=== PATIENT | female | born 1955 | race Caucasian/White ===

== ENCOUNTER → 2020-08-29 13:12 | Outpatient (CLI) | payer MEDICARE, SELFPAY ==
--- NOTE | ~2020-08-29 | MM_ITS ---
EXAMINATION: MM screening [facility] BI [facility] HISTORY: Screening TECHNIQUE: Craniocaudal and mediolateral oblique 3-D tomosynthesis images were obtained and synthetic 2-D images were generated. CAD analysis was submitted and interpreted. COMPARISON: Comparison to multiple prior studies sequentially, with oldest reviewed study dated 01/29. BREAST PARENCHYMAL COMPOSITION: There are scattered areas of fibroglandular density. FINDINGS: There is no evidence of suspicious mass, calcification, or architectural distortion to sugg est malignancy in either breast. There has been no suspicious interval change. IMPRESSION: 1. No mammographic evidence of malignancy. 2. Recommend routine screening mammography in one year. BI-RADS Category 1: Negative Reviewed, dictated and finalized at location A.
--- NOTE | ~2020-08-29 | DEXA_ITS ---
Bone Density Report Name: Alondra Robert Age: 64 Sex: Female Ethnicity: White Date of : 1955 Indication: postmenopausal; screening for osteoporosis; height loss; Referring Provider: Marley Mcneil Study: Bone densitometry was performed. Exam Date: August 29, 2020 Accession number: [id number] Bone Density: Region BMD T-score Z-score Classification AP Spine (L1, L4) 1.029 -0.1 1.7 Normal Femoral Neck (Left) 0.694 -1.4 0.2 Osteopenia Total Hip (Left) 0.831 -0.9 0.4 Normal Femoral Neck (Right) 0.718 -1.2 0.4 Osteopenia Total Hip (Right) 0.899 -0.3 0.9 Normal Total Hip Mean 0.865 -0.6 0.7 Normal World Health Organization criteria for BMD impression classify patients as: Normal (T-score at or above -1.0), Osteopenia (T-score between -1.0 and -2.5), or Osteoporosis (T-score at or below -2.5). 10-year Fracture Risk(1): Major Osteoporotic Fracture 8.8% Hip Fracture 0.9% Reported Risk Factors: [place] (), Neck BMD=0.694, BMI=26.9 (1) FRAX(R) Version 3.08. Fracture probability calculated for an untreated patient. Fracture probability may be lower if the patient has received treatment. Previous Exams: Region Exam Age BMD T-score BMD Change BMD Change Date g/cm2 vs Baseline vs Previous AP Spine(L1, L4) 08/29/2020 64 1.029 -0.1 0.037* 0.051* 08/21/2018 62 0.978 -0.5 -0.014 0.005 02/24/2017 61 0.973 -0.6 -0.019 0.016 02/08/2014 58 0.958 -0.7 -0.034* -0.048* 01/08/2012 56 1.006 -0.3 0.014 0.007 09/15/2009 53 0.999 -0.3 0.007 0.007 09/02/2007 51 0.992 -0.4 Total Hip(Left) 08/29/2020 64 0.831 -0.9 -0.046* -0.009 08/21/2018 62 0.840 -0.8 -0.037* -0.009 02/24/2017 61 0.849 -0.8 -0.028* -0.036* 02/08/2014 58 0.886 -0.5 0.008 -0.007 01/08/2012 56 0.893 -0.4 0.015 0.027 09/15/2009 53 0.866 -0.6 -0.012 -0.012 09/02/2007 51 0.878 -0.5 Total Hip(Right) 08/29/2020 64 0.899 -0.3 -0.041* 0.003 08/21/2018 62 0.897 -0.4 -0.044* -0.027 02/24/2017 61 0.923 -0.2 -0.017 -0.001 02/08/2014 58 0.925 -0.1 -0.016 -0.020 01/08/2012 56 0.945 0.0 0.004 0.008 09/15/2009 53 0.937 0.0 -0.004 -0.004 09/02/2007 51 0.940 0.0 *Denotes significance at 95% c
== END ==
PROVIDERS: PCP Family Medicine; Visit Provider Obstetrics & Gynecology
DX: Z12.31 Encounter for screening mammogram for malignant neoplasm of breast (principal); Z78.0 Asymptomatic menopausal state; M85.852 Other specified disorders of bone density and structure, left thigh; M85.851 Other specified disorders of bone density and structure, right thigh
CPT/HCPCS: 77063; 77067; 77080

== ENCOUNTER → 2021-09-17 07:59 | Outpatient (CLI) | payer MEDICARE, SELFPAY ==
--- NOTE | ~2021-09-17 | XR_ITS ---
EXAMINATION: XR knee LT 3V DATE: 09/17/2021 08:17 INDICATION: Left knee pain TECHNIQUE: Three views of the left knee were obtained. COMPARISON: 05/08/2007 FINDINGS: Alignment is normal. No fracture or osteochondral lesion. There is severe narrowing of the medial compartment, moderate narrowing of the patellofemoral compartment, and mild narrowing of the l ateral compartment. No joint effusion/synovitis. Soft tissues are unremarkable. IMPRESSION: 1. Tricompartmental osteoarthritis, severe in the medial compartment. Reviewed, dictated and finalized at location A.
== END ==
PROVIDERS: PCP Family Medicine; Visit Provider Family Medicine
DX: M17.12 Unilateral primary osteoarthritis, left knee (principal)
CPT/HCPCS: 73562

== ENCOUNTER → 2021-10-29 10:36 | Outpatient (CLI) | payer MEDICARE, SELFPAY ==
--- NOTE | ~2021-10-29 | MM_ITS ---
EXAMINATION: MM screening [facility] BI w [facility] HISTORY: Screening TECHNIQUE: Craniocaudal and mediolateral oblique 3-D tomosynthesis images were obtained and synthetic 2-D images were generated. CAD analysis was submitted and interpreted. COMPARISON: Comparison to multiple prior studies sequentially, with oldest reviewed study dated 01/29. BREAST PARENCHYMAL COMPOSITION: There are scattered areas of fibroglandular density. FINDINGS: There is no evidence of suspicious mass, calcification, or architectural distortion to sugg est malignancy in either breast. There has been no suspicious interval change. IMPRESSION: 1. No mammographic evidence of malignancy. 2. Recommend routine screening mammography in one year. BI-RADS Category 1: Negative Reviewed, dictated and finalized at location A.
== END ==
PROVIDERS: PCP Family Medicine; Visit Provider Obstetrics & Gynecology
DX: Z12.31 Encounter for screening mammogram for malignant neoplasm of breast (principal)
CPT/HCPCS: 77063; 77067

== ENCOUNTER 2022-03-20 06:59 | Outpatient (CLI) | payer MEDICARE, SELFPAY ==
[2022-03-20 07:33] LABS: Basophils Percent Auto 0.6 % (0.2-1.2); Eosinophils Absolute Auto 0.3 K/mm3 (0-0.3); Hematocrit 39.5 % (37.0-47.0); Immature Granulocyte Absolute 0.03 K/mm3 (0.00-0.031); Immature Granulocyte Percent A 0.5 % (0-0.5); Lymphocytes Absolute Auto 1.62 K/mm3 (0.9-3.2); Mean Corpuscular HGB Conc 32.9 g/dl (32-36); Mean Corpuscular Hemoglobin 30.1 pg (26-34); Mean Corpuscular Volume 91.4 fl (80-100); Monocytes Absolute Auto 0.6 K/mm3 (0.1-0.6); Monocytes Percent Auto 9.5 % (2.6-8.5); Neutrophils Absolute Auto 3.7 K/mm3 (1.3-6.7); Neutrophils Percent Auto 59.4 % (45.5-73.1); Platelet Count Result 308 k/mm3 (150-375); Red Blood Count 4.32 M/mm3 (4.2-5.4); Red Cell Distribution Width 12.9 % (11.5-14.5); White Blood Count 6.2 K/mm3 (4.5-10.0)
[2022-03-20 07:43] LABS: Prothrombin Time 12.7 Seconds (11.1-14.7)
[2022-03-20 07:44] LABS: Alanine Aminotransferase 14 U/L (6-35); Albumin Level 4.4 g/dL (3.5-5.1); Alkaline Phosphatase 97 U/L (38-126); Anion Gap 6 mmol/L (8-16); Aspartate Amino Transferase 30 U/L (14-36); Bilirubin,Total 0.6 mg/dL (0.2-1.3); Blood Urea Nitrogen 27 mg/dL (7-17); Calcium 9.2 mg/dL (8.4-10.2); Carbon Dioxide 28 mmol/L (22-30); Chloride 105 mmol/L (98-107); Estimated Glomerular Filt Rate 50; Glucose 94 mg/dL (65-110); Potassium 4.2 mmol/L (3.4-5.0); Sodium 139 mmol/L (137-145)
[2022-03-20 08:14] LABS: Thyroid Stimulating Hormone 0.324 uIU/mL (0.465-4.680)
[2022-03-20 09:17] LABS: Free T4 Free Thyroxine 2.62 ng/mL (0.78-2.19)
[2022-03-20 10:11] LABS: Add Urine Microscopic? YES; Appearance Urine Clear (Clear); Bilirubin Urine Negative (Negative); Blood Urine Negative (Negative); Color Urine Light Yellow (Yellow); Glucose Urine UA Negative (Negative); Ketones Urine Negative (Negative); Leukocyte Esterase Ur 1+ LEU/UL (Negative); Nitrate Urine Negative (Negative); Protein Urine Trace mg/dL (Negative); Urobilinogen Urine 0.2 mg/dL (<2.0); pH Urine 6.5 (5.0-9.0)
[2022-03-20 10:22] LABS: Bacteria Urine Trace /hpf; Mucus Urine Rare /lpf; RBC Urine 0-2 /hpf (0-2); Squamous Epithelial Cell Urine Moderate /hpf (Few)
== END 2022-03-20 07:00 | disposition home or self-care (01) ==
PROVIDERS: PCP Family Medicine; Visit Provider Physician Assistant
DX: Z01.810 Encounter for preprocedural cardiovascular examination (principal); I10 Essential (primary) hypertension; Z11.2 Encounter for screening for other bacterial diseases; Z13.0 Encounter for screening for diseases of the blood and blood-forming organs and certain disorders involving the immune mechanism; Z13.6 Encounter for screening for cardiovascular disorders
CPT/HCPCS: 36415; 80053; 81001; 84439; 84443; 85025; 85610; 86850; 86900; 86901; 87077; 87086; 87088

== ENCOUNTER → 2022-12-31 10:24 | Outpatient (CLI) | payer MEDICARE, SELFPAY ==
--- NOTE | ~2022-12-31 | MM_ITS ---
EXAMINATION: MM screening [facility] BI [facility] HISTORY: Screening mammogram TECHNIQUE: Craniocaudal and mediolateral oblique 3-D tomosynthesis images were obtained and synthetic 2-D images were generated. CAD analysis was submitted and interpreted. COMPARISON: 10/29/2021, 08/29/2020, 04/16/2019 BREAST PARENCHYMAL COMPOSITION: There are scattered areas of fibroglandular density. FINDINGS: No suspicious mass, calcification, or architectural distortion are identified in either tom ast to suggest malignancy. There has been no suspicious interval change. IMPRESSION: 1. No mammographic evidence of malignancy. 2. Recommend routine screening mammography in one year. BI-RADS Category 1: Negative Reviewed, dictated and finalized at location A.
== END ==
PROVIDERS: PCP Obstetrics & Gynecology; Visit Provider Obstetrics & Gynecology
DX: Z12.31 Encounter for screening mammogram for malignant neoplasm of breast (principal)
CPT/HCPCS: 77063; 77067

== ENCOUNTER 2023-07-02 11:56 | Outpatient (CLI) | payer MEDICARE, SELFPAY ==
--- NOTE | ~2023-07-02 | DEXA_ITS ---
Bone Density Report Name: Alondra Robert Age: 67 Sex: Female Ethnicity: White Date of : 1955 Indication: postmenopausal; screening for osteoporosis; height loss; prior fracture; Referring Provider: Marley Mcneil Study: Bone densitometry was performed. Exam Date: July 02, 2023 Accession number: [id number] Bone Density: Region BMD T-score Z-score Classification AP Spine (L1, L4) 1.042 0.0 2.0 Normal Femoral Neck (Left) 0.725 -1.1 0.6 Osteopenia Total Hip (Left) 0.802 -1.1 0.3 Osteopenia Femoral Neck (Right) 0.729 -1.1 0.6 Osteopenia Total Hip (Right) 0.888 -0.4 1.0 Normal Total Hip Mean 0.845 -0.8 0.7 Normal World Health Organization criteria for BMD impression classify patients as: Normal (T-score at or above -1.0), Osteopenia (T-score between -1.0 and -2.5), or Osteoporosis (T-score at or below -2.5). 10-year Fracture Risk(1): Major Osteoporotic Fracture 14% Hip Fracture 1.4% Reported Risk Factors: [place] (), Neck BMD=0.729, BMI=25.3, previous fracture (1) FRAX(R) Version 3.08. Fracture probability calculated for an untreated patient. Fracture probability may be lower if the patient has received treatment. Previous Exams: Region Exam Age BMD T-score BMD Change BMD Change Date g/cm2 vs Baseline vs Previous AP Spine(L1, L4) 07/02/2023 67 1.042 0.0 0.050* 0.013 08/29/2020 64 1.029 -0.1 0.037* 0.051* 08/21/2018 62 0.978 -0.5 -0.014 0.005 02/24/2017 61 0.973 -0.6 -0.019 0.016 02/08/2014 58 0.958 -0.7 -0.034* -0.048* 01/08/2012 56 1.006 -0.3 0.014 0.007 09/15/2009 53 0.999 -0.3 0.007 0.007 09/02/2007 51 0.992 -0.4 Total Hip(Left) 07/02/2023 67 0.802 -1.1 -0.075* -0.029* 08/29/2020 64 0.831 -0.9 -0.046* -0.009 08/21/2018 62 0.840 -0.8 -0.037* -0.009 02/24/2017 61 0.849 -0.8 -0.028* -0.036* 02/08/2014 58 0.886 -0.5 0.008 -0.007 01/08/2012 56 0.893 -0.4 0.015 0.027 09/15/2009 53 0.866 -0.6 -0.012 -0.012 09/02/2007 51 0.878 -0.5 Total Hip(Right) 07/02/2023 67 0.888 -0.4 -0.053* -0.012 08/29/2020 64 0.899 -0.3 -0.041* 0.003 08/21/2018 62 0.897 -0.4 -0.044* -0.027 02/24/2017 61 0.923 -0.2 -0.017 -0.001 02/08/2014 58 0.925 -0.1 -0.016 -0.020 01/08/2012 56 0.945 0.0 0.004 0.008
== END 2023-07-02 11:57 ==
LOC: MICIMG 11:58
PROVIDERS: PCP Obstetrics & Gynecology; Visit Provider Family Medicine
DX: M85.80 Other specified disorders of bone density and structure, unspecified site (principal); Z13.820 Encounter for screening for osteoporosis; Z78.0 Asymptomatic menopausal state; M85.852 Other specified disorders of bone density and structure, left thigh; M85.851 Other specified disorders of bone density and structure, right thigh
CPT/HCPCS: 77080

== ENCOUNTER 2024-04-13 13:13 | Outpatient (CLI) | payer MEDICARE, SELFPAY ==
--- NOTE | ~2024-04-13 | MM_ITS ---
EXAMINATION: MM screening [facility] HISTORY: Screening mammogram TECHNIQUE: Craniocaudal and mediolateral oblique 3-D tomosynthesis images were obtained and synthetic 2-D images were generated. CAD analysis was submitted and interpreted. COMPARISON: 12/31/2022, 10/29/2021, 08/29/2020 BREAST PARENCHYMAL COMPOSITION:Not Dense. There are scattered areas of fibroglandular density. FINDINGS: No suspicious mass, calcification, or architectural distortion are identified in either tom ast to suggest malignancy. There has been no suspicious interval change. IMPRESSION: No mammographic evidence of malignancy. Recommend routine screening mammography in one year. BI-RADS Category 1: Negative Reviewed, dictated and finalized at location . CTION PREVENTION PRACTITIONER
== END 2024-04-13 13:14 | disposition home or self-care (01) ==
LOC: MICIMG 13:13
PROVIDERS: PCP Family Medicine; Visit Provider Family Medicine
DX: Z12.31 Encounter for screening mammogram for malignant neoplasm of breast (principal)
CPT/HCPCS: 77063; 77067

== ENCOUNTER 2024-04-20 14:26 | Outpatient (CLI) | payer MEDICARE, SELFPAY ==
--- NOTE | ~2024-04-20 | XR_ITS ---
HISTORY: M79.662 - Pain in left lower leg COMPARISON: None TECHNIQUE: 2 views of the left tibia and fibula were performed FINDINGS: Left total knee prosthetic is identified, in good position Evidence of prior fracture deformity within the mid to distal tibia, with remodeling and callus forma tion. Within the visualized soft tissues, extensive dilated tubular structures are identified for which vlad ices are suspected. Remaining soft tissues are unremarkable. IMPRESSION: Prior fracture deformity extensive varices Reviewed, dictated and finalized at location A. PTIC METEOROLOGIST
== END 2024-04-20 14:27 | disposition home or self-care (01) ==
LOC: GOSHIMG 14:26
PROVIDERS: PCP Family Medicine; Visit Provider Family Medicine
DX: M79.662 Pain in left lower leg (principal)
CPT/HCPCS: 73590

== ENCOUNTER 2024-06-29 12:59 | Outpatient (CLI) | payer MEDICARE, SELFPAY ==
--- OUTSIDE RECORDS SUMMARY | 2024-06-29 14:10 | XMS_ITS | Data Portability ---
Author Organization [facility] [place] Address [address] [place] [address] Care Team Providers Care Rn Recruitment Name Role Phone NATALIYA HOSKINS Primary Care Provider Assessment Encounter Date Assessment Date Assessment LastModified by Organization Details LastModified Time 12/31/2022 12/31/2022 Annual gynecological exam performed. Patient will come back in a year unless there are new symptoms. [email or web address] Not available 12/31/2022 09:39:47 01/12/2024 01/12/2024 Annual gynecological exam performed. Patient will come back in a year unless there are new symptoms. [email or web address] Not available 01/12/2024 09:19:47 Plan of Treatment Reminders Order Date Submit Date Provider Last Modified By Organization Details Last Modified Time Details Appointments None record ed. Lab None record ed. Referral None record ed. Procedures None record ed. Surgeries None record ed. Imaging None record ed. Medication Orders None record ed. Patient TargetsNo targets recorded. Patient InstructionsNo instructions recorded. Reason for Referral None Reported. Results Created Date Observation Date Name Description Value Unit Range Abnormal Flag Note LastModifiedBy Organization Detail LastModifiedTime 01/01/2012/31/2022 IMAGE GUIDE D PAP AND HPV REGAR DLESS image guided Pap, HPV regardless of Pap result SEE RESULT S BELOW abnormal CASE REPOR T: Cytol ogy Gynec ologi migel Repor t Case: [id number] Autho rizin g Provi shayla: Tanya Ray MD Colle cted: 12/31 1144 Order ing Locat ion: [place] Path[facility] Recei ivanna: 01/01 0240 First Scree n: Nacha mpass ak, Sivil ay, [place] Patho logis t: Oliver Emanuel MD Speci men: Rody valdez Pap - Image d, Cervi x STATE MENT OF ADEQU ACY: Satis facto ry for evalu ation Trans forma tion zone compo nent prese nt FINAL DIAGN OSIS: Epith elial Cell Abnor malit y, Squam ous Cell: Low Grade Squam ous Intra epith elial Lesio n (LSIL ). Elect jonathan cortés by Oliver Emanuel MD on 2022 at 2:18 PM ----- ----- ----- ----- ----- ----- ----- ----- ----- ----- ----- ----- ----- ----- ----- ----- ----- ---- HPV RESUL TS: HPV mRNA E6/E7 : No HPV mRNA Detec kiki NOTE: This high risk HPV mRNA assay detec ts fourt een high- risk HPV types (16, 18, 31, 33, 35, 39, 45, 51, 52, 56, 58, 59, 66, 68) witho ut diffe renti ation . COMME NT: This speci men was revie wed by a Cytot echno logis t and/o r Patho logis t (as indic ated in this repor t) after evalu ation using the Thinp rep Imagi ng Syste m. CLINI MIGEL INFOR MATIO N: Menst rual Statu s: LMP (if appli cable ): Clini migel Histo ry/Pr eviou s Pap: Type of Neopl azucena (if appli cable ): Signi fican t Clini migel Findi ngs: Other Histo ry: Hormo antonella (if appli cable ): KLEVER PEDERSEN FOLLO W-UP: Follo w up as warra nted, based on curre nt guide lines and indiv idual patie nt consi derat ions. Not Available [facility] (Lab) [address], [place], [address], 01/03/2023 15:21:54 01/12/20 24 01/12/2024 IMAGE GUIDE D PAP AND HPV REGAR DLESS image guided Pap, HPV regardless of Pap result SEE RESULT S BELOW abnormal CASE REPOR T: Cytol ogy Gynec ologi migel Repor t Case: [id number] Autho sybil terrazas Provi shayla: Tanya Ray MD Colle cted: 01/11 0955 Order ing Locat ion: [place] Patho logy Recei ivanna: 01/12 0141 First Scree n: Strcarolina z, Omar am, CT Patho logis t: Alfreda Valera MD Speci men: Rody valdez Pap - Image d, Cervi x STATE MENT OF ADEQU ACY: Satis facto ry for evalu ation Trans forma tion zone compo nent prese nt ----- ----- ----- ----- ----- ----- ----- ----- ----- ----- ----- ----- ----- ----- ----- ----- ----- ---- FINAL DIAGN OSIS: Epith elial Cell Abnor malit y, Squam ous Cell: Atypi migel Squam ous Cells of Undet ermin ed Cristela waldron (ASC- [place]). Elect jonathan cortés by Alfreda Valera MD on 01/15 at 3:10 PM ----- ----- ----- ----- ----- ----- ----- ----- ----- ----- ----- ----- ----- ----- ----- ----- ----- ---- HPV RESUL TS: HPV mRNA E6/E7 : No HPV mRNA Detec kiki NOTE: This high risk HPV mRNA assay detec ts fourt een high- risk HPV types (16, 18, 31, 33, 35, 39, 45, 51, 52, 56, 58, 59, 66, 68) witho ut diffe renti ation . COMME NT: This speci men was revie wed by a Cytot echno logis t and/o r Patho logis t (as indic ated in this repor t) after evalu ation using the Thinp rep Imagi ng Syste m. CLINI MIGEL INFOR MATIO N: Menst rual Statu s: LMP (if appli cable ): Clini migel Histo ry/Pr eviou s Pap: Type of Neopl azucena (if appli cable ): Signi fican t Clini migel Findi ngs: Other Histo ry: Hormo antonella (if appli cable ): KLEVER PEDERSEN FOLLO W-UP: Follo w up as warra nted, based on curre nt guide lines and indiv idual patie nt consi derat ions. Not Available [facility] (Lab) [address], [place], [address], 01/16/2024 16:14:48 03/02/20 24 03/02/2024 IMAGE GUIDE D PAP AND HPV REGAR DLESS image guided Pap, HPV regardless of Pap result SEE RESULT S BELOW abnormal CASE REPOR T: Cytol ogy Gynec ologi migel Repor t Case: [id number] Autho sybil terrazas Provi shayla: Tanya Ray MD Colle cted: 03/02 1050 Order ing Locat ion: [place] Patho logy Recei ivanna: 03/03 0152 First Scree n: Marissa posada, Amanda ed, CT Rescr een: Orquidea Marquez, [place] Patho logis t: Delroy Lynn MD Speci men: Rody courtney Pap - Image d, Cervi x STATE MENT OF ADEQU ACY: Satis facto ry for evalu ation Trans forma tion zone compo nent prese nt ----- ----- ----- ----- ----- ----- ----- ----- ----- ----- ----- ----- ----- ----- ----- ----- ----- ---- FINAL DIAGN OSIS: Epith elial Cell Abnor malit y, Squam ous Cell: Atypi migel Squam ous Cells of Undet ermin ed Cristela waldron (ASC- [place]). Elect jonathan cortés by Delroy Lynn MD on 03/12 at 9:57 AM ----- ----- ----- ----- ----- ----- ----- ----- ----- ----- ----- ----- ----- ----- ----- ----- ----- ---- HPV RESUL TS: HPV mRNA E6/E7 : No HPV mRNA Detec kiki NOTE: This high risk HPV mRNA assay detec ts fourt een high- risk HPV types (16, 18, 31, 33, 35, 39, 45, 51, 52, 56, 58, 59, 66, 68) witho ut diffe renti ation . COMME NT: This speci men was revie wed by a Cytot echno logis t and/o r Patho logis t (as indic ated in this repor t) after evalu ation using the Thinp rep Imagi ng Syste m. CLINI MIGEL INFOR MATIO N: Menst rual Statu s: LMP (if appli cable ): Clini migel Histo ry/Pr eviou s Pap: Type of Neopl azucena (if appli cable ): Dominiquei ines t Clini migel Findi ngs: Other Histo ry: Hormo antonella (if appli cable ): KLEVER PEDERSEN FOLLO W-UP: Follo w up as angie nted, based on curre nt guide lines and indiv idual patie nt consi derat ions. Not Available [facility] (Lab) [address], [place], [address], 03/12/2024 11:00:56 01/01/20 23 12/31/2022 MAMMO , scree courtney, bilat eral No observ ation record ed. [facility] [address], [place], [address], 01/01/2023 16:08:22 07/02/19 24 07/02/2023 bone densi ty No observ ation record ed. [email or web address] [facility] [address], [place], [address], 07/21/2023 17:11:19 Result Notes None recorded. 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 10:38:46 Screenin g for malignan t neoplasm of rectum Completed 201104/19/2020 Screenin g for malignan t neoplasm s of the rectum;R ecorded Elsewher e: No Locat ion: [facility] S ource: [employer] Truck Driver cong: N Cheriti ce ID: 0001 Amandeep lable Time: 10:15:00 AM Marley Mcneil MD [address], [place], [address], [facility] 10:38:40 Speciali zed medical examinat ion Completed 201304/19/2020 Gynecolo gical Examinat ion;Des rded Elsewher e: No Locat ion: [facility] S ource: [employer] Driver cong: N Practi ce ID: 0001 Amandeep lable Time: 08:30:00 AM Marley Mcneil MD [address], [place], [address], [facility] 10:38:49 Atypical squamous cells of undeterm ined signific ance on cervical Papanico laou smear [id number] Active 2012 all normal since Marley Mcneil MD [address], [place], [address], [facility] 10:52:38 Leukocyt osis [id number] Completed 201404/19/2020 LEUKOCYT OSIS NOS;Des rded Elsewher e: No Locat ion: [facility] S ource: [employer] Driver cong: N Dg ce ID: [id number] Amandeep lable Time: 08:30:00 AM Marley Mcneil MD [address], [place], [address], [facility] 10:38:[address] Concept Completed 201804/19/2020 Encntr for general adult medical exam w/o abnormal findings ;Recorde d Elsewher e: No Locat ion: [facility] S ource: [employer] Driver cong: yMa Conte ce ID: 0001 Amandeep lable Time: 01:00:00 PM Marley Mcneil MD [address], [place], [address], [facility] 10:38:43 Adult health examinat ion Completed 201404/19/2020 ROUTINE MEDICAL EXAM;Rec orded Elsewher e: No Locat ion: [facility] S ource: [employer] Driver cong: N Dg ce ID: [id number] Amandeep lable Time: 08:30:00 AM Marley Mcneil MD [address], [place], [address], [facility] 10:38:24 Screenin g for malignan t neoplasm of cervix Completed 201004/19/2020 Pap Smear;Pr actice ID: [id number] Marley Mcneil MD [address], [place], [address], [facility] 1 10:38:53 Screenin g for malignan t neoplasm of colon Completed 201004/19/2020 Special screenin g for malignan t neoplasm s, colon;Pr actice ID: 0001 Marley Mcneil MD [address], [place], [address], [facility] 1 10:38:37 Proteinu frankie [id number] Completed 201404/19/2020 PROTEINU FRANKIE;Prac jimbo ID: 0001 Marley Mcneil MD [address], [place], [address], [facility] 1 10:38:34 Leukopen ia [id number] Completed 201004/19/2020 LEUKOCYT OPENIA NOS;Prac jimbo ID: [id number] Marley Mcneil MD [address], [place], [address], [facility] 1 10:38:31 Osteopen ia [id number] Active 2021 Marley Mcneil MD [address], [place], [address], [facility] 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 3 18:23:19 Problem Notes None recorded. Procedures Surgical History Date Name Laterality Status Provider Name and Address Organization Details Recorded Time 01/12/20 24 Date of Last Pap Smear completed Tiffany Mazariegos [facility] 03/02/2024 09:33:26 07/02/19 24 Most Recent Bone Density completed [facility] 07/21/2023 09:32:48 01/01/20 23 Date of Last Mammogram completed [facility] 07/21/2023 09:33:09 07/18/19 23 Colposcopy completed Marley Mcneil MD [address], [place], [address], [facility] 07/17/2022 15:33:25 04/05/19 23 procedure on knee completed [facility] 06/19/2022 10:49:46 03/31/19 15 Date of Last Colonoscopy completed [facility] 04/25/2021 10:35:06 03/31/19 [address] [facility] 04/19/2020 09:01:12 03/31/19 14 procedure on ankle completed [facility] 04/19/2020 09:00:44 03/31/19 05 biopsy of breast completed [facility] YARELIS [facility] 04/19/2020 08:59:57 03/31/18 83 [facility] 04/19/2020 09:00:13 03/31/18 79 [facility]/19/2020 09:00:06 Imaging Results Imaging Date Name Status LastModified by Organiz ation Details LastModified Time 12/31/2022 MAMMO, screening, bilateral completed [facility] [address] [facility], [place], [address], 01/01/2023 16:08:07/02/2023 bone density completed [email or web address] [facility] [address], [place], [address], 07/21/2023 17:11:19 Procedure Notes None recorded. Medical Equipment None Reported. Allergies No known drug allergies Medications Name Sig Start Date Stop Date Status Note LastModified by Organization Details LastModified Time Arthrotec 75 75 mg-200 mcg tablet,fi lm-coated take 1 tablet by oral route 2 times every day 12/02 completed Prescrib ed Elsewher e: Yes Loca tion: [facility] odify By: babak Pereyra ncounter DateTime : 10/14/19 12 10:15:00 AM Not Available Not Available Not Available amoxicill in 500 mg capsule take 1 capsule (500MG) by oral route 3 times every day for 10 days 11/20 completed Prescrib ed Elsewher e: No Locat ion: [facility] odify By: marcusdical Encount er DateTime : 11/12/19 12 03:51:45 PM Not Available Not Available Not Available atorvasta tin 20 mg tablet TAKE 1 TABLET BY MOUTH EVERY DAY active Not Available Not Available No t Available amlodipin e 5 mg tablet TAKE 5 MG ORALLY DAILY active Not Available Not Available No t Available omeprazol e 40 mg capsule,d elayed release TAKE 1 CAPSULE BY MOUTH EVERY DAY active Not Available Not Available No t Available amoxicill in 500 mg tablet take 1 tablet by oral route 3 times every day 12/02 completed Prescrib ed Elsewher e: No Locat ion: [facility] odify By: babak Pereyra ncounter DateTime : 11/04/19 15 02:41:00 PM Not Available Not Available Not Available oxycodone -acetamin ophen 5 mg-325 mg tablet TAKE 1 TABLET BY MOUTH EVERY 4 TO 6 HOURS NEEDED FOR PAIN 06/19 completed Not Available Not Available Not Available levothyro xine 88 mcg tablet TAKE 1 TABLET IN THE MORNING ON MON, TU, WED, TH AND FRI. SKIP SAT AND SUN active Not Available Not Available No t Available amoxicill in 875 mg tablet TAKE 1 TABLET BY MOUTH EVERY 12 HOURS 06/19 completed Not Available Not Available Not Available Synthroid 25 mcg tablet 01/11 completed Not Available Not Available Not Available simvastat in 5 mg tablet take 1 tablet by oral route every day in the evening 12/03 completed Prescrib ed Elsewher e: Yes Loca tion: [facility] pe[facility]ra [facility] odify By: jgita helm DateTime : 10/12/19 12 01:19:25 PM Not Available Not Available Not Available cephalexi n 500 mg capsule TAKE 4 CAPSULES ORALLY ONE HOUR PRIOR TO PROCEDUR E (GOOD FOR 5 SEPARATE PROCEDUR ES) 01/08 completed Not Available Not Available Not Available neomycin- polymyxin -dexameth 3.5 mg/mL-10, 000 unit/mL-0 .1% eye drops INSTILL 1 DROP INTO RIGHT EYE THREE TIMES A DAY SHAKE WELL 06/19 completed Not Available Not Available Not Available losartan 25 mg tablet take 1 tablet by oral route every day 10/14 completed Prescrib ed Elsewher e: Yes Loca tion: [facility] pereyra [facility] odify By: cmedical Encount er DateTime : 10/12/19 12 01:19:25 PM Not Available Not Available Not Available Synthroid 75 mcg tablet TAKE 1 TABLET 6 DAYS A WEEK. SKIP ONE DAY A WEEK. active Not Available Not Available No t Available diclofena c sodium 75 mg tablet,de layed release TAKE 1 TABLET BY MOUTH TWICE A DAY active Not Available Not Available No t Available estradiol 0.01% (0.1 mg/gram) vaginal cream INSERT 1 G VAGINALL Y 3 TIMES A WEEK FOR 90 DAYS. active Not Available Not Available No t Available Bactrim DS 800 mg-160 mg tablet take 1 tablet by oral route every 12 hours 11/03 completed Prescrib ed Elsewher e: No Locat ion: [facility] pe[facility] odify By: maria fernanda kennedy DateTime : 10/29/19 14 09:34:23 AM Not Available Not Available Not Available Avastin 25 mg/mL intraveno us solution infuse by intraven ous route every 2 weeks over 12/07 completed Prescrib ed Elsewher e: Yes Loca tion: Alondrajimmy roddy [facility] odify By: maria fernanda kennedy DateTime : 12/04/19 19 01:00:00 PM Not Available Not Available Not Available amlodipin e 04/25 completed Not Available Not Available Not Available diclofena c 1 % topical gel 06/19 completed Not Available Not Available Not Available Tirosint 13 mcg capsule take 1 capsule by oral route every day 10/13 completed Prescrib ed Elsewher e: Yes Loca tion: [facility] roddy [facility] odify By: juana baca DateTime : 10/12/19 12 01:19:25 PM Not Available Not Available Not Available Tribenzor 20 mg-5 mg-12.5 mg tablet take 1 tablet by oral route every day 04/19 completed Prescrib ed Elsewher e: Yes Loca tion: [facility] odify By: marcusdical Encount er DateTime : 10/15/19 13 08:45:00 AM Not Available Not Available Not Available NuDroxiPA K DSDR-50 mg-0.025 %-25 %-6 % kit,liqui d,tablet delay release 12/03 completed Prescrib ed Elsewher e: Yes Loca tion: [facility] odify By: chris helm DateTime : 12/03/19 18 01:00:00 PM Not Available Not Available Not Available amlodipin e benzoate 2019 active Not Available Not Available Not Avai lable Vitals Date Recorded Body height Body mass index (BMI) Body weight Systolic blood pressure Diastolic blood pressure Provider Name and Address Organization Details Last Updated DateTime 12/31/2022 154.94 cm 25.4 kg/m2 61642.1 g 157 mm[Hg] 67 mm[Hg] Leslie Alford [facility] 3 09:43:13 Date Recorded Body height Body mass index (BMI) Body weight Systolic blood pressure Diastolic blood pressure Provider Name and Address Organization Details Last Updated DateTime 07/21/2023 154.94 cm 25.8 kg/m2 11897.44 g 143 mm[Hg] 80 mm[Hg] Aarti Meek [facility] 4 09:32:02 Date Recorded Body height Body mass index (BMI) Body weight Systolic blood pressure Diastolic blood pressure Provider Name and Address Organization Details Last Updated DateTime 01/12/2024 154.94 cm 26.3 kg/m2 74554.34 g 142 mm[Hg] 82 mm[Hg] Tiffany [facility] 4 09:28:35 Date Recorded Body height Body mass index (BMI) Body weight Provider Name and Address Organization Details Last Updated DateTime 01/26/2024 154.94 cm 26.3 kg/m2 92176.34 g [facility] 01/26/2024 10:18:20 Date Recorded Body height Body mass index (BMI) Body weight Systolic blood pressure Diastolic blood pressure Provider Name and Address Organization Details Last Updated DateTime 03/02/2024 154.94 cm 26.1 kg/m2 10866.75 g 144 mm[Hg] 75 mm[Hg] [facility] 4 09:32:58 Social History Question Answer Notes LastModified by Organizat ion Details LastModified Time Tobacco Smoking Status Never Smoker [facility] 12/31/2022 09:27:57 Do You Have An Advance Directive? No Information not available 07/21/2023 What Is Your Level Of Alcohol Consumption? Occasional Information not available 04/19/2020 How Many Years Have You Consumed Alcohol? 40 Information not available 04/19/2020 Are You Blind Or Do You Have Difficulty Seeing? No Information not available 07/21/2023 What Is Your Level Of Caffeine Consumption? Moderate [email or web address] Information not available 01/09/2024 How Much Tobacco Do You Chew? None [email or web address] Information not available 01/09/2024 In The 14 Days Before Symptom Onset, Have You Had Close Contact With A Laboratory-confir med COVID-19 While That Case Was Ill? No Information not available 07/21/2023 In The 14 Days Before Symptom Onset, Have You Had Close Contact With A Person Who Is Under Investigation For COVID-19 While That Person Was Ill? No Information not available 07/21/2023 Have You Been To An Area Known To Be High Risk For COVID-19? No Information not available 07/21/2023 Are You Deaf Or Do You Have Serious Difficulty Hearing? No Information not available 07/21/2023 What Type Of Diet Are You Following? REGULAR Information not available 07/21/2023 What Is The Highest Grade Or Level Of School You Have Completed Or The Highest Degree You Have Received? [id number] Information not available 07/21/2023 What Is Your Occupation? Retired Teacher Information not available 07/21/2023 How Many Days Of Moderate To Strenuous Exercise, Like A Brisk Walk, Did You Do In The Last 7 Days? 5 [email or web address] Information not available 12/31/2022 Are There Any Guns Present In Your Home? No Information not available 07/21/2023 Have You Ever Been Counseled For Unhealthy Alcohol Use? No [email or web address] Information not available 12/31/2022 Do You Use Protection During Sex? No Information not available 07/21/2023 Do You Use Your Seat Belt Or Car Seat Routinely? Yes Information not available 07/21/2023 Do You Have Smoke And Carbon Monoxide Detectors In Your Home? Yes Information not available 07/21/2023 How Much Tobacco Do You Smoke? No Information not available 07/21/2023 Do You Feel Stressed (tense, Restless, Nervous, Or Anxious, Or Unable To Sleep At Night)? [id number] [email or web address] Information not available 01/09/2024 Do You Use Any Illicit Or Recreational Drugs? No Information not available 04/19/2020 Do You Use Sunscreen Routinely? No [email or web address] Information not available 01/09/2024 Have You Used IV Drugs? No Information not available 07/21/2023 Do You Or Have You Ever Used Any Other Forms Of Tobacco Or Nicotine? No Information not available 12/31/2022 How Many Days In The Past Year Have You Consumed 4 Or More Drinks? 5 [email or web address] Information no t available 12/31/2022 Sex: Unknown Functional Status Question Answer Note LastModified by Organization D etails LastModified Time Are you able to walk? [email or web address] Information not available 01/09/2024 What is your exercise level? Moderate Information not available 04/19/2020 Mental Status None recorded. Family History Relationship Description Onset Age of this Age Resolved Age Notes LastModified by Organization Details LastModified Time Mother Heart disease 73 [email or web address] Not available 2022 09:43:25 Mother Hypertensive disorder Not available 2023 09:34:19 Paternal Grandmother Disorder of thyroid gland Not available 2023 09:34:11 Medical History Condition Response Allergies (Food, seasonal, environmental ) N Other N Breast Cancer N Drug/Latex Allergies/Reactions N Blood Transfusion N Dermatologic Disorders N Lung Disease N Defects or Inherited Disease N Breast Problem N Gestational Diabetes N Hematologic disorders N Anesthesia Complications N History of STI N Deep Vein Thrombosis N Polycystic ovary syndrome N Anxiety Disorder N Autoimmune disease N Arthritis Y Infertility N Polyps N Acid Reflux (GERD) N History of abnormal pap N Cancer N Stroke N Varicosities N Neurologic/Epilepsy N Endometriosis N High Cholesterol Y Headaches N Fibromyalgia N Kidney Disease N Heart Problems N Kidney or Bladder Problems N Thyroid Problems Y GI Problems N Eating Disorder N Anemia N Art (IVF or FET) N Psychiatric Illness N Ovarian Cancer N Diabetes N Pulmonary (TB, Asthma) N Hepatitis/Liver Disease N Eczema N Urinary Tract Infection N Abuse/Domestic Violence N Asthma N Trauma/Violence N Depression/ depression N Heart Disease N Pre-Eclampsia N Hypertension Y Osteoporosis N Thrombophilias N Gynecological History Statement/Question Response Date of Last Mammogram 12/31/2022 On BCP's at Conception? N N Was last menstrual period normal Y STIs/STDs N HPV Vaccine N Current Control Method Menopause Age at First Child 21 If Post Menopausal, Age at Menopause 49 Date of Last Colonoscopy 03/31/2014 Most Recent Bone Density 07/02/2023 Sexually Active? Y Menses Monthly N Age of first menstrual cycle 12 Date of Last Pap Smear 01/12/2024 Sexual Problems? N LMP Unknown N Obstetrics History GPAL:G 3 P 2 1 0 2 Type Value Full Term 2 Premature 1 Living 2 Total 3 Past Encounters Encounter ID Performer Location Encounter Start Date Encounter Closed Date Diagnosis/Indication Diagnosis SNOMED-CT Code Diagnosis ICD10 Code Diagnosis Note [id number] Marley Mnceil MD [facility] [address],[place] [address] 04/19/2020 10:14:05 04/19/2020 12:33:35 Gynecologic examination [id number] Z01.419 [id number] MD John Trevino [address],[place] [address] 04/25/2021 10:23:30 04/25/2021 11:02:34 Atypical squamous cells of undetermined significance on cervical Papanicolaou smear [id number] R87.610 Osteopenia 280545866 M85 .80 Gynecologi c examination [id number] Z01.419 [id number] Marley Mcneil MD [facility] [address],[place] [address] 06/19/2022 10:02:59 06/20/2022 15:04:16 Gynecologic examination 66280960 Z01.419 Midline cystocele 048905 003 N81.11 Postmenopa usal osteopenia 220960968 M85.80 [id number] Marley Mcneil MD [facility] [address],[place] [address] 07/17/2022 14:21:14 07/17/2022 16:01:02 Atypical squamous cells of undetermined significance on cervical Papanicolaou smear 391909588 R87.610 [id number] YURY BOBBY MD [facility] [address],[place] [address] 12/31/2022 09:27:52 12/31/2022 10:10:14 Cervical intraepithelial neoplasia grade 1 [id number] N87.0 - ASCUS neg HPV on pap x3 years- Colpo 06/2022 with CIN1- repeat pap today [id number] YURY BOBBY MD [facility] [address],[place] [address] 07/21/2023 09:18:53 07/21/2023 10:02:20 Gynecologic examination 86108784 Z01.419 Well woman care- Cervical cancer screening: Pap smear not indicated (next 12/2023)- Breast cancer screening: mammogram ordered by PCP- Colon cancer screening: up to date- STD testing: declined- hereditary cancer screening: does not qualify for testing- bone density screening: completed, has followed up with PCP Low grade squamous intraepithelial lesion on cervical Papanicolaou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
--- OUTSIDE RECORDS SUMMARY | 2024-06-29 14:10 | XMS_ITS | Referral Summary ---
Author Organization [facility] Address [address] [place] [address] Care Team Providers Care Director Music Name Role Phone Bonnie Ozuna MD Primary Care Provider + Jaci Lopez MD Unavailable Allergies No known active allergies Medications diclofenac DR (VOLTAREN) 75 mg EC tablet Take 75 mg by mouth 2 (two) times a day. 03/22/2017 Active omeprazole (PriLOSEC) 40 mg capsule Take 40 mg by mouth daily. 03/22/2017 Active SYNTHROID 100 mcg tablet Take 100 mcg by mouth daily. 03/22/2017 Active atorvastatin (LIPITOR) 20 mg tablet Take 1 tablet by mouth daily Active olmesartan-amLOD IPin-hcthiazid (TRIBENZOR) 20-5-12.5 mg tablet Take by mouth Active Active Problems Problem Noted Date Diagnosed Date Joint pain 04/22/2017 Social History Tobacco Use Types Packs/Day Years Used Date Smoking Tobacco: Never Smokeless Tobacco: Never Personal Safety Answer Date Recorded Getting School Help Needed Not on file 06/13 Comments Unknown Sex and Gender Information Value Date Recorded Sex Assigned at Not on file Legal Sex Female 12:45 PM FITTINGS TIGHTENER Gender Identity Not on file Sexual Orientation Not on file Occupation Industry Job Start Date Job End Date teacher Not on file Not on file Not on file Last Filed Vital Signs Vital Sign Reading Time Taken Comments Blood Pressure 107/65 02/02/2019 7:31 AM FITTINGS TIGHTENER Pulse 66 02/02/2019 7:31 AM FITTINGS TIGHTENER Temperature 37 C (98.6 F) 04/22/2017 8:45 AM FITTINGS TIGHTENER Respiratory Rate 16 04/22/2017 8:45 AM FITTINGS TIGHTENER Oxygen Saturation 92% 04/22/2017 8:45 AM FITTINGS TIGHTENER Inhaled Oxygen Concentration - - Weight 64.9 kg (143 lb) 02/02/2019 7:31 AM FITTINGS TIGHTENER Height 158.8 cm (5' 2.5 ) 02/02/2019 7:31 AM FITTINGS TIGHTENER Body Mass Index 25.74 02/02/2019 7:31 AM FITTINGS TIGHTENER Plan of Treatment Not on file Insurance [employer] Care Teams Director Music Relationship Specialty Start Date End Date Bonnie Ozuna MD PCP - General Family Medicine 01/15/17 Jaci Lopez MD Rheumatology 01/15/17
--- OUTSIDE RECORDS SUMMARY | 2024-06-29 14:10 | XMS_ITS | Clinical Summary ---
Author Organization [facility] Address [address] [place] [address] Care Team Providers Care Preparation Supervisor Canning Name Role Phone Bonnie Ozuna MD Primary [...] Noted Date Diagnosed Date Joint pain 04/22/2017 Surgical History Surgery Date Site/Laterality Comments ORIF ANKLE FRACTURE TONSILLECTOMY ANKLE FRACTURE SURGERY Medical History Medical History Date Comments Hyperlipidemia Hypertension Hypothyroidism Family History Medical History Relation Name Comments Arthritis Maternal Grandfather Arthritis Mother Relation Name Status Comments Maternal Grandfather Mother Social History Tobacco Use Types Packs/Day Years Used Date Smoking Tobacco: Never Smokeless Tobacco: Never Personal Safety Answer Date Recorded Getting School Help Needed Not on file 06/13 Comments Unknown Sex and Gender Information Value Date Recorded Sex Assigned at Not on file Legal Sex Female 12:45 PM FREELANCE INTERPRETER/TRANSLATOR Gender Identity Not on file Sexual Orientation Not on file Occupation Industry Job Start Date Job End Date teacher Not on file Not on file Not on file Obstetrics History Last Filed Vital Signs Vital Sign Reading Time Taken Comments Blood Pressure 107/65 02/02/2019 7:31 AM FREELANCE INTERPRETER/TRANSLATOR Pulse 66 02/02/2019 7:31 AM FREELANCE INTERPRETER/TRANSLATOR Temperature 37 C (98.6 F) 04/22/2017 8:45 AM FREELANCE INTERPRETER/TRANSLATOR Respiratory Rate 16 04/22/2017 8:45 AM FREELANCE INTERPRETER/TRANSLATOR Oxygen Saturation 92% 04/22/2017 8:45 AM FREELANCE INTERPRETER/TRANSLATOR Inhaled Oxygen Concentration - - Weight 64.9 kg (143 lb) 02/02/2019 7:31 AM FREELANCE INTERPRETER/TRANSLATOR Height 158.8 cm (5' 2.5 ) 02/02/2019 7:31 AM FREELANCE INTERPRETER/TRANSLATOR Body Mass Index 25.74 02/02/2019 7:31 AM FREELANCE INTERPRETER/TRANSLATOR Plan of Treatment Not on file Insurance [employer] [facility] Care Teams Preparation Supervisor Canning Relationship Specialty Start Date End Date Bonnie Ozuna MD PCP - General Family Medicine 01/15/17 Jaci Lopez MD Rheumatology 01/15/17
--- OUTSIDE RECORDS SUMMARY | 2024-06-29 14:10 | XMS_ITS ---
Author Organization [facility] Address [address] [place] [address] Care Team Providers Care Assistant Head Cashier Name Role Phone Laith Bonnie Primary Care Provider Unavail able Yani GASTON, Davidson Unavailable [phone] ALLERGIES Allergen (clinical drug ingredient) Drug/Non Drug Allergy documented on EMR Reaction Allergy Type Onset Date Status aspirin Aspirin Unknown Drug Allergy Active Adhesive Unknown Allergy Active REASON FOR VISIT left knee MEDICATIONS Medication SIG (Take, Route, Frequency, Duration) Notes Start Date End Date Status Diclofenac Active Levothyroxine Sodium 88 MCG Oral for 90 Days Active Synthroid Active Omeprazole Active Amlodipine Active Atorvastatin Calcium Active amLODIPine Besylate 5 MG 1 Active Synthroid 1 Active SOCIAL HISTORY Tobacco Use: Social History Observation Description Date Details (start date - stop date) Never Smoker NA - NA Sex Assigned At : Social History Observation Description Sex Assigned At Unknown Tobacco Use: Question Answer Notes Patient is a: nonsmoker Alcohol screening: Question Answer Notes Did you have a drink contain ing alcohol in the past year? Yes How often did you have a dri nk containing alcohol in the past year? Two to four times a month (2 points) How many drinks did you have on a typical day when you were drinking in the past year? 1 or 2 (0 points) How often did you have six o r more drinks on one occasion in the past year? Never (0 points) Points 2 Interpretation Negative VITAL SIGNS Blood pressure systolic 141 mm Hg 03/26/20 23 Blood pressure diastolic 75 mm Hg 12/27/2 023 Heart Rate 68 /min 03/26/2023 Height 62 in 03/26/2023 Weight 133 lbs 03/26/2023 BMI 24.32 kg/m2 03/26/2023 Encounters Encounter Location Date Provider Diagnosis [facility] [address] [place] [address] 03/26/2023 Davidson Lomeli MD Encounter for follow-up examination after completed treatment for conditions other than malignant neoplasm Z09 and Presence of left artificial knee joint Z96.652 ASSESSMENTS Encounter Date Diagnosis Assessment Notes Treatment Notes Treatment Clinical Notes 03/26/2023 Encounter for follow-up examination after completed treatment for conditions other than malignant neoplasm (ICD-10 - Z09) 03/26/2023 Presence of left artificial knee joint (ICD-10 - Z96.652) PLAN OF TREATMENT No Information History and Physical Notes * HPI (History of Present Illness) Category Sub-Category Detail Notes Depression Screening PHQ-2 (2015 Edition) Little interest or pleasure in doing things?: Not at all Feeling down, depressed, or hopeless?: N ot at all Total Score: 0
--- OUTSIDE RECORDS SUMMARY | 2024-06-29 14:10 | XMS_ITS | Patient Health Record ---
Author Organization [facility] Address [address] [place] [address] Care Team Providers Care Parts Counter Specialist Name Role Phone Bonnie Ozuna Primary Care Provider Unavail able Yani GASTON, Davidson Unavailable [phone] ALLERGIES Allergen (clinical drug ingredient) Drug/Non Drug Allergy documented on EMR Reaction Allergy Type Onset Date Status aspirin Aspirin Unknown Drug Allergy Active Adhesive Unknown Allergy Active REASON FOR REFERRAL No Information MEDICATIONS Medication SIG (Take, Route, Frequency, Duration) Notes Start Date End Date Status Amlodipine Active Atorvastatin Calcium Active amLODIPine Besylate 5 MG 1 Active Synthroid 1 Active Diclofenac Active Levothyroxine Sodium 88 MCG Oral for 90 Days Active Synthroid Active Omeprazole Active IMMUNIZATIONS Vaccine Route Administration Date Status Comme nts Influenza Unknown 01/29/2021 Administered pneumoccocal Unknown 08/18/2020 Administered Influenza Unknown 09/12/2022 Administered pneumoccocal Unknown 09/12/2022 Administered Influenza Unknown 12/31/2022 Administered SOCIAL HISTORY Tobacco Use: Social History Observation [...] Never (0 points) Points 2 Interpretation Negative PROBLEMS Problem Type ICD Code Onset Dates Problem Status W/U Status Risk SNOMED Code Notes Problem 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) 2 Active confirmed 786057282 Problem Essential (primary) hypertension (I10) Active confirmed 40922401 Problem Aftercare following joint replacement surgery (Z47.1) 3 Active confirmed 502962334 Problem Presence of left artificial knee joint (Z96.652) 3 Active confirmed 235989438550 Problem Encounter for removal of esperanza (Z48.02) 3 Active confirmed 784211853 Problem 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, implants and grafts, 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) 3 Active confirmed 83368556 PLAN OF TREATMENT No Information Insurance Providers Payer Name Payer Address Payer Phone Subscriber Number Group Number Insured Name Patient Relationship to Insured Coverage Start Date Coverage End Date [employer] Medicare Advantage [address] [place] [address] [id number] Konstantin Robert Self - patient is the insured MEDICAL (GENERAL) HISTORY Medical History History ICD Code hypertension hyperlipidemia thyroid disease High Cholesterol Arthritis High Blood Pressure Surgical History Surgery Date(Month/Year) Total replacement of left knee joint manipulation, knee lt ([facility]) 05/24/22 left knee replacement ([facility]) 04/05/22 tonsillectomy tubal ligation ankle surgery
--- NOTE | 2024-06-29 14:15 | NEURO_ITS ---
Impression: # Complains of numbness of left foot. Non-diabetic. ? # Normal motor and sensory Nerve Conduction Study with peroneal nerve amplitude drop. ? # Normal needle/EMG exam without fibs or myotonia. ? # Clinical correlation recommended. Higher involvement needs to be ruled out. Nerve Conduction Studies Anti Sensory Summary Table ?Stim Site NR Peak (ms) P-T Amp (?V) Site1 Site2 Delta-P (ms) Dist (cm) Ranulfo (m/s) Left Sup Fibular Anti Sensory (Ant Lat Mall) 14 cm ? 3.0 3.3 14 cm Ant Lat Mall 3.0 16.0 53 Left Sural Anti Sensory (Lat Mall) Calf ? 3.3 7.3 Calf Lat Mall 3.3 16.0 48 Motor Summary Table ?Stim Site NR Onset (ms) O-P Amp (mV) Site1 Site2 Delta-0 (ms) Dist (cm) Ranulfo (m/s) Left Peroneal Motor (Vastus Med) Ankle ? 3.4 2.4 Popit Ankle 7.3 38.0 52 Popit ? 10.7 1.6 Left Tibial Motor (Abd Godwin Brev) Ankle ? 3.4 12.9 Knee Ankle 7.1 37.0 52 Knee ? 10.5 5.9 F Wave Studies ?NR F-Lat (ms) L-R F-Lat (ms) Left Peroneal (Mrkrs) (EDB) ? 47.49 Left Tibial (Mrkrs) (Abd Hallucis) ? 47.74 EMG ?Side Muscle Nerve Root Ins Act Fibs Amp Dur Recrt Comment Left AntTibialis Dp Br Fibular L4-5 Nml Nml Nml Nml Nml Left Gastroc Tibial S1-2 Nml Nml Nml Nml Nml Left Fibularis Long Sup Br Fibular L5-S1 Nml Nml Nml Nml Nml Left Flex Dig Long Tibial L5-S2 Nml Nml Nml Nml Nml Left Ext Dig Brev Dp Br Fibular L5, S1 Nml Nml Nml Nml Nml Left QuadratusFem QuadFemoris L4-5, S1 Nml Nml Nml Nml Nml MTDD
== END 2024-06-29 13:00 | disposition home or self-care (01) ==
PROVIDERS: PCP Family Medicine; Visit Provider Family Medicine
DX: R20.0 Anesthesia of skin (principal); R20.2 Paresthesia of skin
CPT/HCPCS: 95886; 95908

== ENCOUNTER 2024-08-12 12:14 | Outpatient (CLI) | payer MEDICARE, SELFPAY ==
--- NOTE | ~2024-08-12 | XR_ITS ---
AP view of the pelvis and AP and lateral views of the right hip Clinical history: Pain Findings: No acute fracture or dislocation is seen. Osseous alignment is anatomic. Bilateral hip and SI joint spaces are preserved. Soft tissues are unremarkable. Impression: No significant abnormality is seen. Reviewed, dictated and finalized at [facility]. Impression: No significant abnormality is seen.
== END 2024-08-12 12:15 | disposition home or self-care (01) ==
LOC: GOSHIMG 12:15
PROVIDERS: PCP Orthopaedic Surgery; Visit Provider Family Medicine
DX: M25.551 Pain in right hip (principal)
CPT/HCPCS: 73502

== ENCOUNTER 2024-11-11 08:38 | Outpatient (CLI) | payer MEDICARE, SELFPAY ==
--- NOTE | ~2024-11-11 | MR_ITS ---
EXAMINATION: MR lumbar spine wo con DATE: 11/11/2024 09:13 INDICATION: Spondylosis without myelopathy or radiculopathy TECHNIQUE: Magnetic resonance imaging (MRI) of the lumbar spine was performed without intravenous con trast. Sequences included sagittal T2-weighted FSE, sagittal T2-weighted FS FSE, sagittal T1-weighted FSE, and axial T2-weighted FSE. COMPARISON: None FINDINGS: 15 degrees lumbar levoscoliosis. 2 mm anterolisthesis L4 on L5 and 2 mm retrolisthesis L5 on S1. Vert ebral body heights are normal. Severe disc height loss with anterior predominance at T1 T12, right-si ded predominance at L2-L3 and left-sided predominance at L5-S1, at each with some associated mild fib rovascular degenerative endplate changes. Mild to moderate disc height loss at L3-L4 and L4-L5. Annul ar fissure and left foraminal zone disc extrusion at L4-L5 with disc material extending up to 6 mm ce phalad to the level of the inferior endplate of L4. The conus medullaris terminates at L1-L2. There i s normal signal in the caudal spinal cord. Paravertebral soft tissues are unremarkable. The following disc levels are specifically discussed: T11-T12: Disc is bulging. There is severe left and moderate right facet joint osteoarthritis. There i s mild bilateral neural foraminal stenosis. There is mild central canal stenosis. T12-L1: The disc does not extend beyond the endplate margin. There is mild bilateral facet joint oste oarthritis. There is no neural foraminal stenosis. There is no central canal stenosis. L1-L2: The disc does not extend beyond the endplate margin. There is mild bilateral facet joint osteo arthritis. There is mild right neural foraminal stenosis. There is no central canal stenosis. L2-L3: Disc is bulging. There is mild left and moderate right facet joint osteoarthritis. There is mi ld left and moderate right neural foraminal stenosis. There is mild central canal stenosis. L3-L4: Disc is bulging. There is hypertrophy of the ligamentum flavum. There is moderate bilateral f acet joint osteoarthritis. There is mild to moderate bilateral neural foraminal stenosis. There is mi ld central canal stenosis. L4-L5: Disc is bulging with previous noted left foraminal zone disc extrusion. There is hypertrophy o f the ligamentum flavum. There is severe bilateral facet joint osteoarthritis. There is moderate to severe left and mild right neural foraminal stenosis. There is moderate central canal stenosis. L5-S1: Disc is bulging with annular fissure and small central disc extrusion with disc material exten ding couple millimeter cephalad to the level of the inferior endplate of L5.. There is moderate bilat eral facet joint osteoarthritis. There is mild bilateral neural foraminal stenosis. There is mild nael tral canal stenosis. IMPRESSION: 1. 15 degrees lumbar levoscoliosis with severe spondylosis. Reviewed, dictated and finalized at location A.
== END 2024-11-11 08:39 | disposition home or self-care (01) ==
LOC: MICIMG 08:39
PROVIDERS: PCP Family Medicine; Visit Provider Orthopaedic Surgery
DX: M47.816 Spondylosis without myelopathy or radiculopathy, lumbar region (principal); M25.551 Pain in right hip
CPT/HCPCS: 72148

== ENCOUNTER 2024-12-27 20:34 | Emergency (ER) | payer MEDICARE, SELFPAY ==
--- NOTE | ~2024-12-27 | XR_ITS ---
EXAMINATION: XR knee LT min 4V DATE: 12/27/2024 21:38 INDICATION: Nontraumatic posterior left knee pain TECHNIQUE: Anteroposterior, 2 oblique and crosstable lateral views of the left knee were obtained COMPARISON: 04/20/2024 FINDINGS: Left total knee arthroplasty with patellar resurfacing appears well seated in near-anatomic alignment. No fracture. No left knee joint effusion. Prominent subcutaneous varicosities along the medial aspect of the distal thigh and proximal calf. IMPRESSION: 1. Expected appearance of a left total knee arthroplasty. No acute osseous adenopathy. 2. Prominent subcutaneous varicosities along the medial aspect of the distal left thigh and proximal calf. Reviewed, dictated and finalized at location A. IMPRESSION: 1. Expected appearance of a left total knee arthroplasty. No acute osseous enedina opathy. 2. Prominent subcutaneous varicosities along the medial aspect of the distal le ft thigh and proximal calf.
[2024-12-27 20:48] VITALS: BP 142/72; PULSE 74; RESP 18; TEMP 36.6; O2SAT 98
--- NOTE | 2024-12-27 21:21 | ED_ITS ---
HPI - Extremity Problem General Chief complaint: Extremity Problem,Nontraumatic Stated complaint: left knee pain Time Seen by Provider: 12/27/24 20:50 Source: patient Mode of arrival: ambulatory Limitations: no limitations History of Present Illness HPI Narrative: Patient is a 69-year-old female who presents the ED with report of left posterior knee pain. Patient reports having pain throughout her L upper calf/posterior knee today. Reports she started using a new ankle brace today for her arthritis in her ankle. Reports tightness throughout L leg and posterior knee today. Hx of varicose veins and reports some discomfort r/t these. Has been taking Tylenol w/o significant improvement. Denies numbness, direct fall or injury. Denies previous hx of blood clots. Denies CP, SOB. Related Data Home Medications ?Medication ?Instructions ?Recorded ?Confirmed ?Last Taken ?Type bevacizumab 25 mg/mL intravenous 10 mg IV .COMPLEX 11/22/24 Unknown History solution Allergies Allergy/AdvReac Type Severity Reaction Status Date / Time adhesive AdvReac Mild RASH Verified 12/02/24 14:22 Review of Systems 2 Review of Systems: All systems reviewed & are unremarkable except as noted in HPI. All systems reviewed & are unremarkable except as noted in HPI and below PMFSH Past Medical History Medical History Hepatitis C antibody test negative (02/20/21) Seborrheic keratoses Benign paroxysmal positional vertigo of left ear Unspecified osteoarthritis, unspecified site Varicose veins of unspecified lower extremity with inflammation Surgical History Surgical History History of left knee replacement 03/2022 Family History Family History Mother Abdominal aortic aneurysm Social History Social History Smoking status: Never smoker Alcohol intake: current Alcohol use details: occasionally Substance use: never Substance use type: does not use Current Housing: Decline to Answer Concerned About Future Housing: Decline to Answer Difficulty Paying Gas/Electric Bills: Decline to Answer Difficulty Paying for Meds: Decline to Answer Currently Unemployed: Decline to Answer Education: Decline to Answer Difficulty w/ Childcare or Family Care: Decline to Answer Exam 2 Narrative: GENERAL: Well appearing, well-nourished, non-toxic, in no acute distress. HEAD: Normocephalic, atraumatic. RESPIRATORY: Airway patent, respirations nonlabored. Clear to auscultation bilaterally, no rales, rhonchi, wheezing. CARDIOVASCULAR: Regular rate and rhythm. Pedal pulses strong and easily palpable MUSCULOSKELETAL: Moves all extremities. No gross deformities. Tenderness to palpation throughout left popliteal region without focal swelling. SKIN: Warm, dry, normal color. Normal color and temperature of left lower extremity. Diffuse varicosities throughout left posterior and medial lower leg. NEURO: A&O X3. Speech clear. Cranial nerves II-XII grossly intact. Steady gait. No ataxic movements. PSYCHIATRIC: Appropriate mood and affect. Normal interaction. Course Vital Signs Vital signs: Vital Signs Temperature 97.8 F 12/27/24 20:48 Pulse Rate 74 12/27/24 20:48 Respiratory Rate 18 12/27/24 20:48 Blood Pressure 142/72 H 12/27/24 20:48 Pulse Oximetry 98 12/27/24 20:48 Temperature 97.8 F 12/27/24 20:48 Pulse Rate 74 12/27/24 20:48 Respiratory Rate 18 12/27/24 20:48 Blood Pressure 142/72 H 12/27/24 20:48 Pulse Oximetry 98 12/27/24 20:48 MDM - Extremity (Nontraumatic) MDM Narrative Medical decision making narrative: Patient presented to ED with left posterior knee pain that began today. History of varicose veins. Vital signs stable upon arrival. No signs of neurologic or vascular compromise on physical examination. Compartments are soft without signs of compartment syndrome. XR of L knee w/o acute osseous abnormalities, does show prominent subcutaneous varicosities. Will set patient up for venous Doppler ultrasound of left lower extremity in the morning to rule out DVT. No previous history of DVTs. Laboratory studies were obtained and without significant abnormalities. D-dimer did result elevated at 1.49. Will give dose of Lovenox now. Patient is in agreement. Advised patient to follow-up closely with PCP for ultrasound results and continued blood thinning medication if needed. No signs of symptoms of PE to suggest need for further workup at this time. Discussed possibility muscular strain, rice therapy. Patient given strict return precautions. Discharged in stable condition Medical Records Attestation: I reviewed the patient's medical records. Lab Data Attestation: I reviewed the patient's lab results. 12/27/24 21:29 12/27/24 21:29 Labs: Lab Results 12/27/24 Range/Units 21:29 WBC 10.7 H (4.5-10.0) K/mm3 RBC 3.97 L (4.2-5.4) M/mm3 Hgb 12.0 (12.0-15.0) g/dL Hct 36.3 L (37.0-47.0) % MCV 91.4 (80-100) fl MCH 30.2 (26-34) pg MCHC 33.1 (32-36) g/dl RDW 13.3 (11.5-14.5) % Plt Count 319 (150-375) k/mm3 MPV 9.2 (7.4-10.4) fl Immature Gran % (Auto) 0.4 (0-0.5) % Neut % (Auto) 67.9 (45.5-73.1) % Lymph % (Auto) 17.8 L (18.3-44.2) % [place] % (Auto) 11.6 H (2.6-8.5) % Eos % (Auto) 1.9 (0-4.4) % Baso % (Auto) 0.4 (0.2-1.2) % Lymph # (Auto) 1.90 (0.9-3.2) K/mm3 [place] # (Auto) 1.2 H (0.1-0.6) K/mm3 Eos # (Auto) 0.2 (0-0.3) K/mm3 Baso # (Auto) 0.0 (0.0-0.1) K/mm3 Abs Immat Gran (auto) 0.04 H (0.00-0.031) K/mm3 Absolute Neuts (auto) 7.3 H (1.3-6.7) K/mm3 Absolute Nucleated RBC 0.000 (0.0-0.012) K/mm3 Nucleated RBC % 0.0 (0.0-0.2) % PT 13.0 (11.1-14.7) Seconds INR 1.0 APTT 28.0 (22.3-36.8) Seconds D-Dimer 1.49 H (<0.48) ug/mL Sodium 136 L (137-145) mmol/L Potassium 3.8 (3.4-5.0) mmol/L Chloride 104 (98-107) mmol/L Carbon Dioxide 24 (22-30) mmol/L Anion Gap 8 (4-12) mmol/L BUN 28 H (7-17) mg/dL Creatinine 1.35 H (0.7-1.0) mg/dL Estim Creat Clear Calc 28 ml/min Estimated GFR 39 L (59 - ) Glucose 106 (65-110) mg/dL Calcium 8.9 (8.4-10.2) mg/dL Imaging Data Attestation: I personally reviewed and interpreted this imaging study as follows: Radiologist's impression: ITS Impressions Knee X-Ray 12/27/24 21:49 IMPRESSION: 1. Expected appearance of a left total knee arthroplasty. No acute osseous adenopathy. 2. Prominent subcutaneous varicosities along the medial aspect of the distal left thigh and proximal calf. Discharge Plan Discharge Clinical Impression: Posterior left knee pain Patient Disposition: Home Condition: Stable Instructions: Antibiotic Form, Knee Sprain (ED) Additional Instructions: You are set up for an ultrasound of your left leg tomorrow morning at 7:30 AM at [facility]. Please arrive at least 10 minutes early. Take imaging order sheet with you. Follow-up with your primary care doctor for ultrasound results and further evaluation. Recommend elevation of leg, ice to leg, Tylenol as needed for pain. Return to the ED if you experience worsening or severe pain or swelling, chest pain, difficulty breathing, fall or injury, severe numbness, or any other symptoms of concern. Patient Language: Malaysian Prescriptions: No Action bevacizumab 25 mg/mL solution 10 mg IV .COMPLEX Patient Comments: every 6 months Rx Instructions: 10 mg intravenously; levothyroxine [Synthroid] 75 mcg tablet 75 mcg PO .COMPLEX Qty: 90 3RF Rx Instructions: 75 mcg orally; Please dispense branded synthroid take 6 days a week. Skip one day a week. amlodipine 5 mg tablet 5 mg PO DAILY Qty: 90 1RF atorvastatin 20 mg tablet See Rx Instructions .ROUTE .COMPLEX Qty: 90 1RF Dose Instruction: TAKE 1 TABLET BY MOUTH EVERY DAY Rx Instructions: TAKE 1 TABLET BY MOUTH EVERY DAY Other Ambulatory Orders: US venous doppler LE LT (Routine) Timeframe: 20241228 Location: Determined by Patient Ordered By: Nicole James Follow-up/Referrals: Bonnie Ozuna MD [Primary Care Provider, [facility]] Time of Disposition: 22:31
[2024-12-27] MEDS: ACETAMINOPHEN 500 MG TABLET 1000 MG PO (21:34)
[2024-12-27 21:35] LABS: Hematocrit 36.3 % (37.0-47.0); Hemoglobin 12.0 g/dL (12.0-15.0); Immature Granulocyte Percent A 0.4 % (0-0.5); Lymphocytes Absolute Auto 1.90 K/mm3 (0.9-3.2); Mean Corpuscular HGB Conc 33.1 g/dl (32-36); Mean Corpuscular Hemoglobin 30.2 pg (26-34); Mean Corpuscular Volume 91.4 fl (80-100); Nucleated Red Blood Cells Absolute Auto 0.000 K/mm3 (0.0-0.012); Nucleated Red Blood Cells Perc 0.0 % (0.0-0.2); Platelet Count Result 319 k/mm3 (150-375); Red Blood Count 3.97 M/mm3 (4.2-5.4); White Blood Count 10.7 K/mm3 (4.5-10.0)
[2024-12-27 21:46] LABS: INR 1.0; Partial Thromboplastin Time 28.0 Seconds (22.3-36.8); Prothrombin Time 13.0 Seconds (11.1-14.7)
[2024-12-27 21:49] LABS: Anion Gap 8 mmol/L (4-12); Blood Urea Nitrogen 28 mg/dL (7-17); Calcium 8.9 mg/dL (8.4-10.2); Carbon Dioxide 24 mmol/L (22-30); Chloride 104 mmol/L (98-107); Estimated CRCL calculation 28 ml/min; Estimated Glomerular Filt Rate 39; Glucose 106 mg/dL (65-110); Potassium 3.8 mmol/L (3.4-5.0); Sodium 136 mmol/L (137-145)
[2024-12-27] MEDS: ENOXAPARIN 60 MG/0.6 ML SYRINGE SUB-Q (22:32)
[2024-12-27 22:42] VITALS: BP 120/68; PULSE 76; RESP 16; TEMP 37.1; O2SAT 98
== END 2024-12-27 22:43 | disposition home or self-care (01) ==
PROVIDERS: Emergency Provider Physician Assistant; PCP Family Medicine
DX: M25.562 Pain in left knee (principal)
CPT/HCPCS: 36415; 73564; 80048; 85025; 85380; 85610; 85730; 96372; 99283; A9270; J1650

== ENCOUNTER 2024-12-28 07:38 | Outpatient (CLI) | payer MEDICARE, SELFPAY ==
--- NOTE | ~2024-12-28 | US_ITS ---
EXAMINATION: US venous doppler LE , 12/28/2024 8:00 CDT HISTORY: M25.562 - Pain in left knee Comparison: None Technique: Green-scale and color Doppler images were attempted of the lower saphenofemoral junction, common femoral vein,superficial femoral vein, proximal deep femoral vein, proximal deep femoral vein, popliteal vein and posterior tibial veins. Findings: Deep Venous System:Normal flow, augmentation and compressibility. No echogenic thrombus identified. The contralateral saphenofemoral junction appears unremarkable. Superficial Venous SystemNo superficial thrombophlebitis. Soft tissues: Soft tissues are unremarkable. Impression: Negative for DVT. Reviewed, dictated and finalized at location P. Impression: Negative for DVT.
== END 2024-12-28 07:39 | disposition home or self-care (01) ==
PROVIDERS: PCP Family Medicine; Visit Provider Physician Assistant
DX: M79.662 Pain in left lower leg (principal); M25.562 Pain in left knee
CPT/HCPCS: 93971

== ENCOUNTER 2025-02-14 11:41 | Outpatient (CLI) | payer MEDICARE, SELFPAY ==
--- NOTE | ~2025-02-14 | US_ITS ---
EXAMINATION: US renal BI, 02/14/2025 11:43 [employer]OR[employer] HISTORY: N18.32 - Chronic kidney disease, stage 3b Comparison: None Technique: Green-scale and color Doppler images were obtained. Findings: KIDNEYS: Renal cortices intact, no solid masses, cysts or calculi, no hydronephrosis. Right Kidney: Right kidney 9.5 x 4.2 x 6 cm, normal. Left Kidney: Left kidney 7.9 x 5.3 x 3.7 cm, normal. Bladder: The bladder is unremarkable. . Impression: No acute abnormality. Reviewed, dictated and finalized at location P. [employer]ORES Impression: No acute abnormality.
== END 2025-02-14 11:42 | disposition home or self-care (01) ==
LOC: MICIMG 11:42
PROVIDERS: PCP Family Medicine; Visit Provider Internal Medicine Nephrology
DX: N18.32 Chronic kidney disease, stage 3b (principal)
CPT/HCPCS: 76770